=== PATIENT | male | born 1995 | race Caucasian/White ===

== ENCOUNTER 2016-12-21 22:03 | Emergency (ER) | payer OTHER ==
[~2016-12-21] VITALS: Ht 175.3 cm; Wt 90.7 kg
--- NOTE | 2016-12-21 22:20 | NUR ---
[facility] / [employer] FOR LAC TO RIGHT EYE AND ABRASIONS TO CHEST WITH NEIGHBOR. TDAP NOT UP TO DATE, NAD NOTED, VSS, WAITING FOR MD PAUL.
--- NOTE | 2016-12-21 22:57 | NUR ---
MD ENGLE AT
--- NOTE | 2016-12-21 23:23 | NUR ---
EKG IN PROGRESS
[2016-12-21 23:32] LABS: BASOPHILS % (AUTO) 0.2 % (0.0-2.0); HEMATOCRIT 48 % (39-51); HEMOGLOBIN 16.1 g/dL (13.5-17.5); LYMPHOCYTES # (AUTO) 1.5 /CMM (0.8-4.8); LYMPHOCYTES % (AUTO) 8.4 % (20.0-44.0); MEAN CORPUSCULAR HEMOGLOBIN 30 PG (26.0-33.0); MEAN CORPUSCULAR HGB CONC 34 g/dl (31.0-36.0); MEAN CORPUSCULAR VOLUME 90 fL (80-96); MONOCYTES % (AUTO) 5.9 % (2.0-12.0); NEUTROPHILS # (AUTO) 15.1 /CMM (1.8-8.9); NEUTROPHILS % (AUTO) 85.5 % (43.0-81.0); PLATELET COUNT (AUTO) 265 /CMM (150-450); RDW COEFFICIENT OF VARIATION 13.2 (11.5-15.0); RED BLOOD CELL COUNT(AUTO) 5.31 MIL/uL (4.5-6.0); WHITE BLOOD COUNT (AUTO) 17.7 K/uL (4.3-11.0)
[2016-12-21 23:40] LABS: CALCIUM, SERUM 10.4 mg/dL (8.5-10.1); CREATININE 1.3 mg/dL (0.6-1.3); POTASSIUM 3.7 mmol/L (3.5-5.1)
--- NOTE | 2016-12-22 02:04 | NUR ---
URINE COLLECTED. 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
[2016-12-22 02:14] LABS: APPEARANCE,URINE CLEAR (CLEAR); BILIRUBIN,URINE NEGATIVE (NEGATIVE); BLOOD, URINE TRACE Ery/uL (NEGATIVE); COLOR,URINE YELLOW (YELLOW); KETONES,URINE NEGATIVE (NEGATIVE); LEUKOCYTE ESTERASE ,URINE NEGATIVE (NEGATIVE); NITRITE, URINE NEGATIVE (NEGATIVE); PH,URINE 6.5 (5.0-8.0); PROTEIN,URINE 1+ mg/dl (NEGATIVE); UGLUCOSE NEGATIVE (NEGATIVE); UROBILINOGEN,URINE 0.2 EU/dL (0.2)
[2016-12-22 02:19] LABS: BACTERIA,URINE Few /HPF (None Seen); MUCUS,URINE Few /LPF (None Seen); SQUAMOUS EPITHELIAL CELL,UR Few /HPF (None Seen); WBC,URINE 0-2 /HPF (0-3)
--- NOTE | 2016-12-22 03:00 | NUR ---
PT MEDICALLY CLEARED FOR BOOKING PER ER MD. PT AAOX4 NO ACUTE DISTRESS NOTED, RESP EVEN AND UNLABORED. DISCHARGE INSTRUCTION GIVEN AND EXPLAINED TO PT. PT DISCHARGED TO [employer] CUSTODY. PT AMBULATORY WITH STEADY GAIT NOTED. SL REMOVED, 2X2 AND PRESSURE APPLIED.
[2016-12-22 03:03] VITALS: BP 162/86
== END 2016-12-22 03:04 ==
LOC: ER 22:04
DX: F15.10 Other stimulant abuse, uncomplicated (principal); F12.10 Cannabis abuse, uncomplicated; D72.829 Elevated white blood cell count, unspecified; F43.9 Reaction to severe stress, unspecified; Z23 Encounter for immunization
CPT/HCPCS: 36415; 71010-TC; 80048-TC; 80305; 81000-TC; 85025-TC; 90715; A4606; G0480; J2060; J7030; J7040; Z7610